=== PATIENT | female | born 1950 | race Caucasian/White ===

== ENCOUNTER 2017-06-11 13:39 | Emergency (ER) | payer MEDICARE, OTHER ==
[~2017-06-11] VITALS: Ht 157.5 cm; Wt 102.1 kg
--- NOTE | 2017-06-11 14:43 | NUR ---
PT IS IN ROOM #1B. DR VILLAGOMEZ EVALUATED THE PT.
--- NOTE | 2017-06-11 17:04 | NUR ---
Cliff uriasjessica in EDM - 06/11/17 at [address] VILLAGOMEZ TALKED TO DR WALTERS FROM [facility]. [facility] WAS CALLED TO TRANSFER THE PT TO [facility]. NIL[place] IS 45 MINUTES.
--- NOTE | 2017-06-11 17:23 | NUR ---
PT WAS D/C TO HOME. D/C INSTRUCTIONS GIVEN TO THE PT.
[2017-06-11 17:25] VITALS: BP 142/79
== END 2017-06-11 17:26 | disposition home or self-care (01) ==
LOC: ER 13:39
DX: S92.311A Displaced fracture of first metatarsal bone, right foot, initial encounter for closed fracture (principal); S93.611A Sprain of tarsal ligament of right foot, initial encounter; I10 Essential (primary) hypertension; W01.0XXA Fall on same level from slipping, tripping and stumbling without subsequent striking against object, initial encounter; Y93.89 Activity, other specified; Y92.89 Other specified places as the place of occurrence of the external cause; Y99.8 Other external cause status
CPT/HCPCS: 73560; 73600; 73620; A4663